=== PATIENT | male | born 1960 | race Caucasian/White ===

== ENCOUNTER 2018-07-18 00:57 | Emergency (ER) | payer MEDICARE, OTHER ==
[~2018-07-18] VITALS: Wt 119.6 kg
--- NOTE | 2018-07-18 03:40 | ERD ---
ER Documentation Chief Complaint Chief Complaint AP HPI The patient is a 58-year-old male, presenting to the ER because of left-sided abdominal pain that began around 6 PM last night, complains of vomiting initially food and phlegm, denies diarrhea. His fever, chills, neck pain, chest pain, dyspnea. He does not smoke nor drink Past medical history: Diabetes mellitus Past surgical history: None ROS All systems reviewed and are negative except as per history of present illness. Medications Home Meds Active Scripts Ibuprofen* (Motrin*) 600 Mg Tab, 600 MG PO Q6H PRN for PAIN AND OR ELEVATED TEMP, #30 TAB Prov:MILAGRO COHEN MD 07/18/18 Allergies Allergies: Coded Allergies: No Known Allergy (Verified , 12/03/06) PMhx/Soc Hx Alcohol Use: No Hx Substance Use: No Hx Tobacco Use: No Physical Exam Vitals Vital Signs Date Temp Pulse Resp B/P (MAP) Pulse Ox O2 O2 Flow FiO2 Time Delivery Rate 07/18/18 99 16 161/101 100 Room Air 05:34 (121) 07/18/18 103 16 170/98 100 Room Air 04:02 (122) 07/18/18 99.0 96 18 172/94 96 01:07 (120) Physical Exam Const: No acute distress. Head: Atraumatic. Eyes: Normal Conjunctiva. ENT: Normal External Ears, Nose and Mouth. Neck: Full range of motion. No meningismus. Resp: Clear to auscultation bilaterally. Cardio: Regular rate and rhythm. Abd: Soft, obese, normal bowel sounds, left mid abdominal discomfort, no rigidity, rebound, CVA tenderness. Skin: No petechiae or rashes. Back: No midline or flank tenderness. Ext: No cyanosis, or edema. Neur: Awake and alert. No focal deficit Psych: Normal Mood and Affect. Result Diagram: 07/18/18 0350 07/18/18 0350 Results 24 hrs Laboratory Tests Test 07/18/18 03:50 07/18/18 04:23 White Blood Count 11.5 10^3/ul Red Blood Count 5.18 10^6/ul Hemoglobin 15.7 g/dl Hematocrit 45.4 % Mean Corpuscular Volume 87.6 fl Mean Corpuscular Hemoglobin 30.3 pg Mean Corpuscular Hemoglobin Concent 34.6 g/dl Red Cell Distribution Width 12.9 % Platelet Count 221 10^3/UL Mean Platelet Volume 11.2 fl Immature Granulocytes % 0.500 % Neutrophils % 86.6 % Lymphocytes % 11.1 % Monocytes % 1.3 % Eosinophils % 0.0 % Basophils % 0.5 % Nucleated Red Blood Cells % 0.0 /100WBC Immature Granulocytes # 0.060 10^3/ul Neutrophils # 10.0 10^3/ul Lymphocytes # 1.3 10^3/ul Monocytes # 0.2 10^3/ul Eosinophils # 0.0 10^3/ul Basophils # 0.1 10^3/ul Nucleated Red Blood Cells # 0.0 10^3/ul Sodium Level 141 mmol/L Potassium Level 3.9 mmol/L Chloride Level 100 mmol/L Carbon Dioxide Level 26 mmol/L Anion Gap 15 Blood Urea Nitrogen 15 mg/dl Creatinine 0.48 mg/dl Est Glomerular Filtrat Rate mL/min > 60 mL/min Glucose Level 380 mg/dl Calcium Level 9.9 mg/dl Total Bilirubin 0.5 mg/dl Direct Bilirubin 0.00 mg/dl Indirect Bilirubin 0.5 mg/dl Aspartate Amino Transf (AST/SGOT) 36 IU/L Alanine Aminotransferase (ALT/SGPT) 39 IU/L Alkaline Phosphatase 141 IU/L Total Protein 8.4 g/dl Albumin 4.4 g/dl Globulin 4.00 g/dl Albumin/Globulin Ratio 1.10 Lipase 49 U/L Bedside Urine pH (LAB) 7.0 Bedside Urine Protein (LAB) 1+ Bedside Urine Glucose (UA) 0.50% Bedside Urine Ketones (LAB) 3+ Bedside Urine Blood Negative Bedside Urine Nitrite (LAB) Negative Bedside Urine Leukocyte Esterase (L Negative Current Medications Medications Dose Sig/Lucia Start Time Status Last (Trade) Ordered Route PRN Stop Time Admin Dose Reason Admin Morphine 4 mg ONCE STAT 07/18/18 DC 07/18/18 Sulfate IV 03:45 07/18/18 03:56 (morphine) 03:47 Ondansetron 4 mg ONCE STAT 07/18/18 DC 07/18/18 HCl (Zofran IV 03:45 07/18/18 03:56 Inj) 03:47 Procedures/MDM [address] [address] Radiology Main Line: [phone] DIAGNOSTIC IMAGING REPORT Patient: SWETHA PETERSON DOB: 1960 Age: 58 Sex: M MR #: [id number] DOS: 07/18/18 0345 Ordering MD: MILAGRO COHEN MD Location: E/R Room/Bed: PROCEDURE: CT Abdomen and Pelvis Without Intravenous Contrast CLINICAL INDICATION: Abdominal Pain TECHNIQUE: Axial computed tomography images of the abdomen and pelvis without intravenous contrast. Sagittal and coronal reformatted images were created and reviewed. CTDIvol (mGy) = <22.5 mGy>; total DLP (mGy-cm) = <1669.1 mGy.cm> This CT exam was performed using one or more of the following dose reduction techniques: automated exposure control, adjustment of the mA and/or kV according to patient size, and/or use of iterative reconstruction technique. DICOM images are available. COMPARISON: None FINDINGS: LUNG BASES: Slight bibasilar atalectasis. HEART: Cardiomegaly. ABDOMEN: LIVER: Probable mild hepatic steatosis. GALLBLADDER AND BILE DUCTS: Unremarkable No calcified stones. No ductal dilation. PANCREAS: Unremarkable No ductal dilation. SPLEEN: Minimal calcification of the splenic capsule. ADRENALS: Unremarkable No mass. KIDNEYS AND URETERS: 2 mm nonobstructing left lower pole renal stone. No other urolithiasis is seen. No hydronephrosis. STOMACH AND BOWEL: Colonic diverticulosis without evidence of diverticulitis. PELVIS: APPENDIX: Normal appendix. BLADDER: Unremarkable No stones. REPRODUCTIVE: Slightly enlarged prostate with central calcifications. Correlate with PSA. ABDOMEN and PELVIS: INTRAPERITONEAL SPACE: Unremarkable No free air. No significant fluid collection. BONES/JOINTS: Mild degenerative change of the spine. SOFT TISSUES: Fat-containing umbilical hernia. Probable injection granuloma in the right gluteal region. VASCULATURE: Mild atherosclerotic change of the abdominal vasculature. No ev idence for aneurysm. LYMPH NODES: Unremarkable No enlarged lymph nodes. OTHER FINDINGS: IMPRESSION: 1. Slightly enlarged prostate with central calcifications. Correlate with PSA. 2. Colonic diverticulosis without evidence of diverticulitis. 3. Tiny nonobstructing left lower pole renal stone. RPTAT: [facility] Physician Gurdeep Date Time Electronically viewed and signed by Gabriela Emerson Physician on 07/18/2018 05:35 LE/ CC: MILAGRO COHEN MD [phone] MEDICAL MAKING DECISION: The patient is a 58-year-old male, presenting with acute abdominal pain, most likely acute renal colic, was treated with morphine 4 mg IV for pain, Zofran 4 mg IV for nausea with good response, stable for outpatient follow-up The differential diagnoses considered include but are not limited to cholelithiasis, cholecystitis, choledocholithiasis, cholangitis, pancreatitis, hepatitis, gastritis, peptic ulcer disease, gastric ulcer, appendicitis, cystitis, diverticulitis, partial small bowel obstruction. Departure Diagnosis: Primary Impression: Abdominal pain Additional Impression: Hyperglycemia Condition: Good Comments He was discharged with Motrin I discussed the findings with the patient. I advised the patient to follow-up with the primary physician in about 2-3 days, sooner if needed and return if any concern. Disclaimer: Inadvertent spelling and grammatical errors are likely due to EHR/dictation software use and do not reflect on the overall quality of patient care. Also, please note that the electronic time recorded on this note does not necessarily reflect the actual time of the patient encounter. MILAGRO COHEN MD Jul 18, 2018 03:40
[2018-07-18] MEDS ORDERED: ONDANSETRON 4 MG INJ IV STA (03:45)
[2018-07-18] MEDS ORDERED: morphine 4 MG/ML VIAL IV STA (03:45)
[2018-07-18] MEDS ORDERED: IBUP-1542 PO (05:34)
[2018-07-18] MEDS ORDERED: KETOROLAC 30 MG INJ IV STA (06:01)
[2018-07-18] MEDS ORDERED: ROSU5TAB11 PO (06:05)
[2018-07-18] MEDS ORDERED: METF-849 PO (06:05)
[2018-07-18] MEDS ORDERED: MULT-861 PO (06:05)
[2018-07-18] MEDS ORDERED: ESOM40CA51 PO (06:05)
[2018-07-18] MEDS ORDERED: SITA100T11 PO (06:05)
[2018-07-18] MEDS ORDERED: BRIM15DR2 BOTH EYES (06:05)
[2018-07-18] MEDS ORDERED: DORZ10DR22 BOTH EYES (06:05)
[2018-07-18] MEDS ORDERED: CALC600T24 PO (06:05)
[2018-07-18] MEDS ORDERED: FLUT16SP17 NASAL (06:05)
[2018-07-18] MEDS ORDERED: OLOP2.5D5 OP (06:05)
[2018-07-18] MEDS ORDERED: HYDR-3601 PO (06:05)
[2018-07-18 06:19] VITALS: BP 142/90; PULSE 98; RESP 16
[2018-07-19] MEDS ORDERED: HYDR-3980 PO (14:55)
[2018-07-19] MEDS ORDERED: CIPR500T4 PO (14:55)
[2018-07-19] MEDS ORDERED: METR500T PO (14:55)
== END 2018-07-18 06:19 | disposition home or self-care (01) ==
LOC: E/R 00:57
DX: R10.9 Unspecified abdominal pain (principal); E11.65 Type 2 diabetes mellitus with hyperglycemia; R11.10 Vomiting, unspecified
CPT/HCPCS: 36415; 74176; 80053; 81003; 83690; 85025; 96374; 96375; 99285; J1885; J2270; J2405

== ENCOUNTER 2018-07-19 12:12 | Emergency (ER) | payer MEDICARE, OTHER ==
[~2018-07-19] VITALS: Ht 167.6 cm; Wt 118.0 kg
[~2018-07-19 12:12] MED LIST: BRIM15DR2 BOTH EYES; CALC600T24 PO; DORZ10DR22 BOTH EYES; ESOM40CA51 PO; FLUT16SP17 NASAL; HYDR-3601 PO; IBUP-1542 PO; METF-849 PO; MULT-861 PO; OLOP2.5D5 OP; ROSU5TAB11 PO; SITA100T11 PO
[2018-07-19 12:21] VITALS: Ht 167.6 cm; Wt 118.0 kg
[2018-07-19] MEDS ORDERED: HYDROmorphONE 1 MG/ML SYG IV STA (12:53)
[2018-07-19] MEDS ORDERED: ONDANSETRON 4 MG INJ IV STA (12:53)
[2018-07-19] MEDS ORDERED: METR500T PO (14:55)
[2018-07-19] MEDS ORDERED: HYDR-3980 PO (14:55)
[2018-07-19] MEDS ORDERED: CIPR500T4 PO (14:55)
--- NOTE | 2018-07-19 14:57 | ERD ---
ER Documentation Chief Complaint Chief Complaint abdominal pain and vomiting x 2 days HPI This is a 58-year male complains of pain in the left lower quadrant for 2 days and has had some nausea vomiting is nonbilious nonbloody. No diarrhea. The patient was seen here yesterday and he was told that he had a kidney stone causing his pain. On review of the medical record from yesterday the patient does have a very small left intrarenal stone but nothing in the ureter. He complains of the pain in the left lower quadrant as being a constant dull ache with some mild constipation. No radiation of the pain no hematuria no dysuria ROS All systems reviewed and are negative except as per history of present illness. Medications Home Meds Active Scripts Hydrocodone/Acetaminophen (Acampo 10-325 Tablet) 1 Each Tablet, 1 TAB PO Q6H PRN for PAIN, #7 TAB Prov:DEISY LESTER DO 07/19/18 Metronidazole* (Flagyl*) 500 Mg Tablet, 500 MG PO TID for 7 Days, TAB Prov:DEISY LESTER DO 07/19/18 Ciprofloxacin Hcl* (Ciprofloxacin Hcl*) 500 Mg Tablet, 500 MG PO BID for 7 Days, TAB Prov:DEISY LESTER. DO 07/19/18 Ibuprofen* (Motrin*) 600 Mg Tab, 600 MG PO Q6H PRN for PAIN AND OR ELEVATED TEMP, #30 TAB Prov:MILAGRO COHEN MD 07/18/18 Reported Medications Calcium Carbonate* (Calcium Carbonate*) 600 MG Ca Tab, 600 MG PO DAILY, TAB 07/18/18 Multivits,Ca,Min/Iron/FA/Lycop (Centrum Men's Tablet) 1 Each Tablet, 1 EACH PO DAILY, TAB 07/18/18 Olopatadine HCl (Pazeo) 2.5 Ml Drops, 2.5 ML OP, BOTTLE 07/18/18 Dorzolamide-Timolol* (Cosopt*) 2%-0.5% - 10 Ml Soln, 1 DROP BOTH EYES BID, BOTTLE 07/18/18 Brimonidine Tartrate* (Alphagan P*) 0.1%-15 Ml Opht Drops, 1 DROP BOTH EYES Q8, #1 EA 07/18/18 Fluticasone Propionate* (Fluticasone Propionate* Nasal) 50 Mcg/[place] - 16 Gm [place].susp, 1 SPRAY NASAL BID, #1 BOTTLE TO EACH NOSTRIL 07/18/18 Hydrocodone Bit-Acetaminophen (Hydrocodone Bit-APAP) 5-325MG Tablet, 1 TAB PO PRN for PAIN LEVEL 1-5 07/18/18 Esomeprazole Magnesium (Esomeprazole Magnesium) 40 Mg Capsule.dr, 40 MG PO DAILY for 30 Days, #30 07/18/18 Sitagliptin* (Januvia*) 100 Mg Tablet, 100 MG PO DAILY for 90 Days, #90 07/18/18 Rosuvastatin Calcium (Rosuvastatin Calcium) 5 Mg Tablet, 5 MG PO DAILY for 90 Days, #90 07/18/18 Metformin* (Glucophage*) 500 Mg Tab, 500 MG PO BID for 60 Days, #180 07/18/18 Allergies Allergies: Coded Allergies: No Known Allergy (Verified , 12/03/06) PMhx/Soc History of Surgery: Yes (left upper chest) Anesthesia Reaction: No Hx Neurological Disorder: No Hx Respiratory Disorders: No Hx Cardiac Disorders: No Hx Psychiatric Problems: No Hx Miscellaneous Medical Probl: Yes (DM ) Hx Alcohol Use: No Hx Substance Use: No Hx Tobacco Use: No Smoking Status: Never smoker FmHx Family History: No coronary disease Physical Exam Vitals Vital Signs Date Temp Pulse Resp B/P (MAP) Pulse Ox O2 O2 Flow FiO2 Time Delivery Rate 07/19/18 94 16 163/100 97 Room Air 13:10 (121) 07/19/18 99.7 87 18 190/107 97 12:21 (134) Physical Exam Const: Well-developed, well-nourished Head: Atraumatic, normocephalic Eyes: Normal Conjunctiva, PERRLA, EOMI, normal sclera, no nystagmus ENT: Normal External Ears, Nose and Mouth, moist mucus membranes. Neck: Full range of motion. No meningismus, no lymphadenopathy. Resp: Clear to auscultation bilaterally, no wheezing, rhonchi, rales Cardio: Regular rate and rhythm, no murmurs, S1 S2 present Abd: Soft, mild tender left lower quadrant, non distended. Normal bowel sounds, no guarding or rebound, no pulsitile abdominal masses or bruits Skin: No petechiae or rashes, no ecchymosis , no maculopapular rash Back: No midline or flank tenderness Ext: No cyanosis, or edema, FROM x 4, normal inspection, neurovascularly intact x 4 Neur: Awake and alert, STR 5/5 x 4, sensation intact x 4, no focal findings, cerebellum intact Psych: Normal Mood and Affect Result Diagram: 07/19/18 1305 07/19/18 1305 Results 24 hrs Laboratory Tests Test 07/19/18 13:05 White Blood Count 12.5 10^3/ul Red Blood Count 5.14 10^6/ul Hemoglobin 15.5 g/dl Hematocrit 45.8 % Mean Corpuscular Volume 89.1 fl Mean Corpuscular Hemoglobin 30.2 pg Mean Corpuscular Hemoglobin Concent 33.8 g/dl Red Cell Distribution Width 12.9 % Platelet Count 231 10^3/UL Mean Platelet Volume 11.5 fl Immature Granulocytes % 0.600 % Neutrophils % 75.7 % Lymphocytes % 16.5 % Monocytes % 5.9 % Eosinophils % 0.7 % Basophils % 0.6 % Nucleated Red Blood Cells % 0.0 /100WBC Immature Granulocytes # 0.080 10^3/ul Neutrophils # 9.4 10^3/ul Lymphocytes # 2.1 10^3/ul Monocytes # 0.7 10^3/ul Eosinophils # 0.1 10^3/ul Basophils # 0.1 10^3/ul Nucleated Red Blood Cells # 0.0 10^3/ul Sodium Level 138 mmol/L Potassium Level 3.9 mmol/L Chloride Level 99 mmol/L Carbon Dioxide Level 26 mmol/L Anion Gap 13 Blood Urea Nitrogen 18 mg/dl Creatinine 0.54 mg/dl Est Glomerular Filtrat Rate mL/min > 60 mL/min Glucose Level 366 mg/dl Calcium Level 9.3 mg/dl Total Bilirubin 0.5 mg/dl Direct Bilirubin 0.00 mg/dl Indirect Bilirubin 0.5 mg/dl Aspartate Amino Transf (AST/SGOT) 52 IU/L Alanine Aminotransferase (ALT/SGPT) 44 IU/L Alkaline Phosphatase 108 IU/L Total Protein 8.0 g/dl Albumin 4.1 g/dl Globulin 3.90 g/dl Albumin/Globulin Ratio 1.05 Current Medications Medications Dose Sig/Lucia Start Time Status Last (Trade) Ordered Route PRN Stop Time Admin Dose Reason Admin 1 mg ONCE STAT 07/19/18 DC 07/19/18 Hydromorphone IV 12:53 07/19/18 13:12 HCl 12:54 (Dilaudid) Ondansetron 4 mg ONCE STAT 07/19/18 DC 07/19/18 HCl (Zofran IV 12:53 07/19/18 13:12 Inj) 12:54 Procedures/MDM For the patient likely has subclinical/microscopic diverticulitis. I will treated with Cipro Flagyl and Acampo. Do not feel that this intrarenal stone is causing his pain there is no stone in the ureter. Departure Diagnosis: Primary Impression: Diverticulitis Condition: Stable Patient Instructions: Diverticulitis DEISY LESTER DO Jul 19, 2018 14:57
[2018-07-19] MEDS ORDERED: HYDROCODONE/APAP (10/325) TAB PO ONE (15:30)
[2018-07-19 15:31] VITALS: BP 149/77; PULSE 91; RESP 20
== END 2018-07-19 15:35 | disposition home or self-care (01) ==
LOC: E/R 12:12
DX: K57.92 Diverticulitis of intestine, part unspecified, without perforation or abscess without bleeding (principal); E11.9 Type 2 diabetes mellitus without complications; Z79.84 Long term (current) use of oral hypoglycemic drugs
CPT/HCPCS: 36415; 80053; 85025; 96374; 96375; 99284; J1170; J2405